=== PATIENT | female | born 1980 | race Caucasian/White ===

== ENCOUNTER 2023-03-28 09:35 | Emergency (ER) | payer OTHER ==
[2023-03-28 09:43] VITALS: BP 142/76; PULSE 104; RESP 18; TEMP 98
--- NOTE | 2023-03-28 09:59 | ED ---
Skin/Abscess/FB HPI - General Chief complaint: Skin/Abscess/Foreign Body Stated complaint: skin tag Time Seen by Provider: 03/28/23 09:45 Source: patient, RN notes reviewed, old records reviewed Mode of arrival: ambulatory Limitations: no limitations - History of Present Illness Initial comments: 42-year-old female presenting ambulatory with complaints of a right inner thigh skin tag for the past 2 years. Patient states that she just started seeing a new primary care doctor last week and did not want to mention it to him at the time. States over the past couple of days has started rubbing and pulling at it causing increased irritation. Was hoping to have it removed today. Denies any drainage or bleeding. No fevers. Does have a history of multiple skin tags. States hx of hypertension and PCOS. MD complaint: lesion (skin tag) -: year(s) (2) Location: RLE (inner thigh) Severity scale (1-10): 7 Quality: constant Consistency: intermittent Improves with: other (covering with bandage) Associated symptoms: denies other symptoms Treatments Prior to Arrival: bandages - Related Data Allergies Allergy/AdvReac Type Severity Reaction Status Date / Time No Known Allergies Allergy Verified 03/28/23 09:43 Review of Systems ROS Statement: Those systems with pertinent positive or pertinent negative responses have been documented in the HPI. ROS Other: All systems not noted in ROS Statement are negative. Past Medical History Past Medical History: Hypertension Past Surgical History: Orthopedic Surgery, Tonsillectomy Past Psychological History: No Psychological Hx Reported Smoking Status: Current every day smoker Past Alcohol Use History: None Reported Past Drug Use History: None Reported General Exam Limitations: no limitations General appearance: alert, in no apparent distress Head exam: Present: atraumatic Eye exam: Present: normal appearance. Absent: scleral icterus, conjunctival injection Respiratory exam: Absent: respiratory distress, accessory muscle use Cardiovascular Exam: Present: tachycardia Neurological exam: Present: alert, oriented X3, normal gait Psychiatric exam: Present: normal affect, normal mood Skin exam: Present: warm, dry, normal color, other (1cm skin tag extending from stem to right inner thigh, no erythema or drainage. No active bleeding.) Course Vital Signs 03/28/23 09:39 Temperature 98 F Pulse Rate 104 H Respiratory 18 Rate Blood Pressure 142/76 O2 Sat by Pulse 98 Oximetry Medical Decision Making - Medical Decision Making Was pt. sent in by a medical professional or institution (BHANU Moise, BUSINESS SERVICES ASSISTANT, urgent care, hospital, or fci...) When possible be specific @ -No Did you speak to anyone other than the patient for history (EMS, parent, family, police, friend...)? What history was obtained from this source @ -No Did you review nursing and triage notes (agree or disagree)? Why? @ -I reviewed and agree with nursing and triage notes Were old charts reviewed (outside hosp., previous admission, EMS record, old EKG, old radiological studies, urgent care reports/EKG's, fci records)? Report findings @ -No old charts were reviewed Differential Diagnosis (chest pain, altered mental status, abdominal pain women, abdominal pain men, vaginal bleeding, weakness, fever, dyspnea, syncope, headache, dizziness, GI bleed, back pain, seizure, CVA, palpatations, mental health, musculoskeletal)? @ -Skin tag, abscess, cellulitis EKG interpreted by me (3pts min.). @ -n/a X-rays interpreted by me (1pt min.). @ -None done CT interpreted by me (1pt min.). @ -None done U/S interpreted by me (1pt. min.). @ -None done What testing was considered but not performed or refused? (CT, X-rays, U/S, labs)? Why? @ -None What meds were considered but not given or refused? Why? @ -None Did you discuss the management of the patient with other professionals (professionals i.e. BHANU Moise, BUSINESS SERVICES ASSISTANT, lab, RT, psych nurse, social service technician, director of professional services, teacher, giving officer, pillowcase cutter)? Give summary @ -No Was smoking cessation discussed for >3mins.? @ -No Was critical care preformed (if so, how long)? @ -No Were there social determinants of health that impacted care today? How? (Homelessness, low income, unemployed, alcoholism, drug addiction, transportation, low edu. Level, literacy, decrease access to med. care, longterm, rehab)? @ -No Was there de-escalation of care discussed even if they declined (Discuss DNR or withdrawal of care, Hospice)? DNR status @ -No What co-morbidities impacted this encounter? (DM, HTN, Smoking, COPD, CAD, Cancer, CVA, ARF, Chemo, Hep., AIDS, mental health diagnosis, sleep apnea, morbid obesity)? @ -Polycystic ovarian syndrome, hypertension Was patient admitted / discharged? Hospital course, mention meds given and route, prescriptions, significant lab abnormalities, going to OR and other pertinent info. @ -Discharged 42-year-old female presenting ambulatory with complaints of a right inner thigh skin tag for the past 2 years. Patient states that she just started seeing a new primary care doctor last week and did not want to mention it to him at the time. States over the past couple of days has started rubbing and pulling at it causing increased irritation. Was hoping to have it removed today. Denies any drainage or bleeding. No fevers. Does have a history of multiple skin tags. States hx of hypertension and PCOS. On physical exam there is an approximately 1 cm skin tag on a stem with no evidence of bleeding. No surrounding erythema. No evidence of abscess. Has been present for 2 years. She states that she has had multiple skin tags in the past from her PCOS. I advised patient that she can follow up with her primary care doctor or dermatology for removal. Does not need to be emergently removed. She is agreeable to following up outpatient. Case discussed with Dr. Shook. Undiagnosed new problem with uncertain prognosis? @ -No Drug Therapy requiring intensive monitoring for toxicity (Heparin, Nitro, Insulin, Cardizem)? @ -No Were any procedures done? @ -No Diagnosis/symptom? @ -skin tag right inner thigh Acute, or Chronic, or Acute on Chronic? @ -chronic Uncomplicated (without systemic symptoms) or Complicated (systemic symptoms)? @ -Uncomplicated Side effects of treatment? @ -No Exacerbation, Progression, or Severe Exacerbation? @ -No Poses a threat to life or bodily function? How? (Chest pain, [place], [place], pneumonia, PE, COPD, DKA, ARF, appy, cholecystitis, CVA, Diverticulitis, Homicidal, Suicidal, threat to staff... and all critical care pts) @ -No Disposition Clinical Impression: Skin tag Disposition: HOME SELF-CARE Condition: Good Additional Instructions: Follow-up with your primary care doctor or dermatology for skin tag removal. Is patient prescribed a controlled substance at d/c from ED?: No Referrals: Rosas Rodriguez MD [Primary Care Provider] - 1-2 days Geri Dale MD [STAFF PHYSICIAN] - 1-2 days Time of Disposition: 09:59
== END 2023-03-28 10:23 | disposition home or self-care (01) ==
LOC: EC 09:35
DX: L91.8 Other hypertrophic disorders of the skin (principal); I10 Essential (primary) hypertension; F17.200 Nicotine dependence, unspecified, uncomplicated
CPT/HCPCS: 99282

== ENCOUNTER → 2023-03-28 | Outpatient (CLI) | payer OTHER ==
[2023-03-28 15:32] LABS: Basophils # (A) 0.07 X 10*3/uL (0.00-0.10); Basophils % (A) 0.7 %; Eosinophils % (A) 3.7 %; HCT 45.5 % (37.2-46.3); HGB 14.3 d/dL (12.0-15.0); Lymphocytes # (A) 3.27 X 10*3/uL (0.90-5.00); Lymphocytes % (A) 30.6 %; MCH 26.5 pg (27.0-32.0); MCHC 31.4 d/dL (32.0-37.0); MCV 84.4 FL (80.0-97.0); Mean Platelet Volume 10.3 FL (9.5-12.2); Monocytes # (A) 0.58 X 10*3/uL (0.20-1.00); Monocytes % (A) 5.4 %; NRBC Per 100 WBC 0 X 10*3/uL (0.00-0.01); Neutrophils # (A) 6.31 X 10*3/uL (1.80-7.70); Neutrophils % (A) 59.1 %; Platelet Count 441 X 10*3/uL (140-440); RBC 5.39 X 10*6/uL (4.10-5.20); RDW 15.6 % (11.5-14.5); WBC 10.68 X 10*3/uL (4.50-10.00)
[2023-03-28 16:03] LABS: ALT 26 U/L (8-44); AST 25 U/L (13-35); Albumin 4.5 d/dL (3.8-4.9); Albumin/Globulin Ratio 1.73 Ratio (1.60-3.17); Alkaline Phosphatase 125 U/L (41-126); Blood Urea Nitrogen 12.6 mg/dL (9.0-27.0); Calcium 9.9 mg/dL (8.7-10.3); Carbon Dioxide 23.4 mmol/L (21.6-31.8); Chloride 104 mmol/L (96-109); Chol/HDL Ratio 3.95 Ratio; Globulin 2.6 d/dL (1.6-3.3); Glucose 112 mg/dL (70-110); LDL Cholesterol,Calculated 103.6 mg/dL (0.0-131.0); Potassium 4.6 mmol/L (3.5-5.5); Sodium 141 mmol/L (135-145); Total Bilirubin <0.2 mg/dL (0.3-1.2); Total Protein 7.1 d/dL (6.2-8.2)
== END | disposition home or self-care (01) ==
LOC: LABWHC1 08:37
PROVIDERS: ATTEND Family Medicine
DX: Z00.00 Encounter for general adult medical examination without abnormal findings (principal)
CPT/HCPCS: 36415; 80053; 80061; 82306; 85025

== ENCOUNTER → 2023-12-11 | Outpatient (CLI) | payer OTHER ==
[2023-12-11 11:18] LABS: Basophils # (A) 0.04 X 10*3/uL (0.00-0.10); Basophils % (A) 0.4 %; Eosinophils # (A) 0.44 X 10*3/uL (0.04-0.35); Eosinophils % (A) 3.9 %; HCT 43.8 % (37.2-46.3); HGB 13.5 g/dL (12.0-15.0); Lymphocytes # (A) 3.43 X 10*3/uL (0.90-5.00); Lymphocytes % (A) 30.7 %; MCH 26.6 pg (27.0-32.0); MCHC 30.8 g/dL (32.0-37.0); MCV 86.4 FL (80.0-97.0); Mean Platelet Volume 9.8 FL (9.5-12.2); Monocytes # (A) 0.72 X 10*3/uL (0.20-1.00); Monocytes % (A) 6.4 %; NRBC Per 100 WBC 0 X 10*3/uL (0.00-0.01); Neutrophils # (A) 6.52 X 10*3/uL (1.80-7.70); Neutrophils % (A) 58.2 %; Platelet Count 433 X 10*3/uL (140-440); RBC 5.07 X 10*6/uL (4.10-5.20); WBC 11.19 X 10*3/uL (4.50-10.00)
[2023-12-11 11:32] LABS: ALT 20 U/L (8-44); AST 22 U/L (13-35); Albumin 4.3 g/dL (3.8-4.9); Albumin/Globulin Ratio 1.65 Ratio (1.60-3.17); Alkaline Phosphatase 123 U/L (41-126); BUN/Creat Ratio 13.75 Ratio (12.00-20.00); Calcium 9.6 mg/dL (8.7-10.3); Chloride 105 mmol/L (96-109); Globulin 2.6 g/dL (1.6-3.3); Glucose 96 mg/dL (70-110); Potassium 4.4 mmol/L (3.5-5.5); Sodium 139 mmol/L (135-145); Total Bilirubin <0.2 mg/dL (0.3-1.2); Total Protein 6.9 g/dL (6.2-8.2)
== END | disposition home or self-care (01) ==
LOC: LABWHC1 06:56
PROVIDERS: ATTEND Family Medicine
DX: I10 Essential (primary) hypertension (principal); R73.01 Impaired fasting glucose
CPT/HCPCS: 36415; 80053; 83036; 85025